=== PATIENT | male | born 1950 | race Caucasian/White ===

== ENCOUNTER 2018-09-13 14:51 | Emergency (ER) | payer SELFPAY ==
[~2018-09-13] VITALS: Ht 185.4 cm; Wt 84.2 kg
[2018-09-13 14:57] VITALS: BP 137/90
== END 2018-09-13 16:27 | disposition home or self-care (01) ==
LOC: ED 15:51
DX: S25.50 Unspecified injury of intercostal blood vessels (principal); S52.611A Displaced fracture of right ulna styloid process, initial encounter for closed fracture; F17.210 Nicotine dependence, cigarettes, uncomplicated; W18.00XA Striking against unspecified object with subsequent fall, initial encounter; Y93.89 Activity, other specified; Y92.89 Other specified places as the place of occurrence of the external cause; Y99.8 Other external cause status
CPT/HCPCS: 29125; 99283

== ENCOUNTER 2019-11-10 04:37 | Emergency (ER) | payer SELFPAY ==
[~2019-11-10] VITALS: Ht 185.4 cm; Wt 90.0 kg
[2019-11-10] MEDS ORDERED: IBUPROFEN 600 MG TABLET PO ONE (05:00)
[2019-11-10] MEDS ORDERED: IBUPROFEN 600 MG TABLET ONE (05:40)
--- NOTE | 2019-11-10 06:53 | NUR ---
REPORT RECIEVED FROM TAMERA.
[2019-11-10 07:14] VITALS: BP 124/63
--- NOTE | 2019-11-10 07:18 | NUR ---
Provider at bedside discussing POC
--- NOTE | 2019-11-10 08:00 | NUR ---
Patient/Caregiver given discharge instructions and they have confirmed that they understand the instructions. Patient ambulatory with steady gait use cruches use. Perscripition and work note given to patient
== END 2019-11-10 08:02 | disposition home or self-care (01) ==
LOC: ED 07:58
DX: S80.02XA Contusion of left knee, initial encounter (principal); M79.662 Pain in left lower leg; R00.0 Tachycardia, unspecified; W01.0XXA Fall on same level from slipping, tripping and stumbling without subsequent striking against object, initial encounter; Y93.89 Activity, other specified; Y92.410 Unspecified street and highway as the place of occurrence of the external cause; Y99.8 Other external cause status
CPT/HCPCS: 99284